=== PATIENT | female | born 1940 | race Native Hawaiian/Other Pacific Islander ===

== ENCOUNTER 2021-09-01 11:35 | Emergency (ER) | payer OTHER ==
[~2021-09-01] VITALS: Ht 157.5 cm; Wt 71.2 kg
[2021-09-01 13:40] VITALS: BP 140/67; TEMP 98
== END 2021-09-01 13:40 | disposition home or self-care (01) ==
LOC: ED 11:35
DX: S20.211A Contusion of right front wall of thorax, initial encounter (principal); S80.12XA Contusion of left lower leg, initial encounter; V49.50XA Passenger injured in collision with unspecified motor vehicles in traffic accident, initial encounter; Y92.89 Other specified places as the place of occurrence of the external cause
CPT/HCPCS: 99283